=== PATIENT | female | born 1990 | race Caucasian/White ===

== ENCOUNTER 2017-02-11 17:53 | Emergency (ER) | payer BC, OTHER ==
[2017-02-11 18:17] VITALS: BP 161/80
[2017-02-11] MEDS ORDERED: Ketorolac INJ* 30 MG/ML 1 ML VIAL IM ONE (18:45)
--- NOTE | 2017-02-11 19:13 | UC ---
Abdominal Pain Female HPI - HPI Summary HPI Summary: 26 yo female presents with right pelvic/groin pain x 2 days states this is her typical pain from ovarian cysts followed by physicians at [facility] [place] [facility] in [place] no n/v no f/c no UTI symptoms had vag d/c yesterday - History of Current Complaint Chief Complaint: UCAbdominalPain Stated Complaint: SOFT TISSUE COMPLAINT Time Seen by Provider: 02/11/17 18:36 Hx Obtained From: Patient Hx Last Menstrual Period: 6 weeks ago Onset/Duration: Gradual Onset, Lasting Days Timing: Constant Severity Initially: Moderate Severity Currently: Moderate Pain Intensity: 7 Pain Scale Used: 0-10 Numeric Location: Discrete At: RLQ Radiates: No Character: Aching, Sharp Aggravating Factor(s): Nothing Alleviating Factor(s): Nothing Associated Signs and Symptoms: Positive: Negative Allergies/Adverse Reactions: Allergies Allergy/AdvReac Type Severity Reaction Status Date / Time Codeine Allergy Mild Hives Verified 02/11/17 18:17 Fentanyl AdvReac Severe Difficulty Verified 02/11/17 18:17 Breathing Hydrocodone AdvReac See Comment Verified 02/11/17 18:17 Home Medications: Home Medications Norethindrone Acet & Eth Estra [Loestrin 1.5-21 1.5-30 mg-Mcg] 1 tab PO DAILY 02/11/17 [History Confirmed 02/11/17] PMH/Surg Hx/FS Hx/Imm Hx GI/ History: Other Other GI/ History: frequent ovarian cysts - Surgical History Surgical History: Yes Surgery Procedure, Year, and Place: Orthroscopic surgery LEFT knee - Family History Known Family History: Positive: None, Other - denies hx of range master Magdalena Negative: Cardiac Disease, Hypertension, Diabetes - Social History Alcohol Use: Rare Substance Use Type: None Smoking Status (MU): Former Smoker - Immunization History Most Recent Influenza Vaccination: none Review of Systems Constitutional: Negative Skin: Negative Eyes: Negative ENT: Negative Respiratory: Negative Cardiovascular: Negative Gastrointestinal: Abdominal Pain Genitourinary: Negative Motor: Negative Neurovascular: Negative Musculoskeletal: Negative Neurological: Negative Psychological: Negative Is Patient Immunocompromised?: No All Other Systems Reviewed And Are Negative: Yes Physical Exam Triage Information Reviewed: Yes Appearance: Well-Appearing, No Pain Distress, Well-Nourished Vital Signs: Initial Vital Signs Temp 98.4 F 02/11/17 18:10 Pulse 113 02/11/17 18:10 Resp 16 02/11/17 18:10 BP 161/80 02/11/17 18:10 Pulse Ox 100 02/11/17 18:10 Vital Signs Reviewed: Yes Eyes: Positive: Conjunctiva Clear ENT: Positive: Hearing grossly normal. Negative: Nasal congestion, Nasal drainage, Trismus, Muffled voice, Hoarse voice, Dental tenderness, Sinus tenderness Neck: Positive: Supple, Nontender, No Lymphadenopathy Respiratory: Positive: Lungs clear, Normal breath sounds, No respiratory distress, No accessory muscle use Cardiovascular: Positive: RRR, No Murmur Abdomen Description: Positive: Nontender, No Organomegaly, Soft, Other: - ext genitalia- no lesions, vagina-moderate d/c (whitish), cervix (ectropion), no CMT ,slight right adenexal tenderness, uterus normal sized. Negative: CVA Tenderness (R), CVA Tenderness (L), Distended, Guarding, Hernia @ Musculoskeletal: Positive: ROM Intact, No Edema Neurological: Positive: Alert Psychological Exam: Normal Skin Exam: Normal Abd Pain Female Course/Dx - Course Course Of Treatment: patient states she is somewhat improved with the toradol. states she was up all last PM from the pain and she would like further evaluation. I suggested she go to the ER for a higher level of care - Differential Dx/Diagnosis Provider Diagnoses: Right sided pelvic pain of uncertain cause Discharge - Discharge Plan Condition: Stable Disposition: TRANS HIGHER LVL OF CARE FAC Patient Education Materials: Pelvic Pain in Women (ED) Referrals: Jf Wade MD [Primary Care Provider] - Additional Instructions: I am unsure of the cause of your severe right sided pelvic pain We are unable to adequately evaluate here and I suggest you go to the ER for further evaluation
[2017-02-12 11:35] LABS: Trichomonas Source Endocervical (Negative)
== END 2017-02-11 19:47 | disposition short-term general hospital (02) ==
LOC: UCEAST 17:53
DX: R10.2 Pelvic and perineal pain (principal); Z87.891 Personal history of nicotine dependence
CPT/HCPCS: 81003; 81025; 84702; 87491; 87591; 87661; 99212; G0463; J1885

== ENCOUNTER 2017-05-12 20:45 | Emergency (ER) | payer BC, OTHER ==
[2017-05-12] MEDS ORDERED: NS 0.9% 1000 ML* 1,000 ML IV ONE (21:46)
[2017-05-12] MEDS ORDERED: Morphine INJ* 4 MG/ML 1 ML SYRINGE (NEW SYRINGE VERSION) IV ONE (21:46)
[2017-05-12] MEDS ORDERED: Metoclopramide IV* 5 MG/ML 2 ML VIAL IV SLOW PU ONE (21:46)
[2017-05-12 22:23] LABS: ABS Basophils 0.1 10^3/ul (0-0.2); ABS Eosinophils 0.1 10^3/ul (0-0.6); ABS Lymphocytes 3.2 10^3/ul (1.0-4.8); ABS Monocytes 0.9 10^3/ul (0-0.8); ABS Neutrophils 5.3 10^3/ul (1.5-7.7); ABS Nucleated RBC 0 10^3/ul; Eosinophil % 0.7 % (0-6); Hematocrit 37 % (35-47); Hemoglobin 12.2 g/dl (12.0-16.0); Lymphocyte % 33.4 % (25-47); Mean Corpuscular HGB Conc 33 g/dl (31-36); Mean Corpuscular Hemoglobin 26 pg (27-31); Mean Corpuscular Volume 79 fL (80-97); Mean Platelet Volume 8 um3 (7.4-10.4); Nucleated Red Blood Cells % 0.1; Platelet Count 254 10^3/ul (150-450); Red Blood Count 4.69 10^6/ul (4.0-5.4); Red Cell Distribution Width 14 % (10.5-15); White Blood Count 9.5 10^3/ul (3.5-10.8)
[2017-05-12 22:37] LABS: EGFR Non-African American 104.5 (>60)
[2017-05-12 22:54] LABS: Urine Appearance Cloudy; Urine Blood 2+ (Negative); Urine Color Yellow; Urine Ketones 2+ (Negative); Urine Protein 1+(30 mg/dL) (Negative); Urine Specific Gravity 1.028 (1.010-1.030); Urine Urobilinogen Negative (Negative)
[2017-05-13] MEDS ORDERED: Potassium Chlor TAB* 20 MEQ TAB.ER PO ONE (00:27)
[2017-05-13 02:04] VITALS: BP 125/90
--- NOTE | 2017-05-13 07:49 | RAD ---
INDICATION: Abdominal pain COMPARISON: CT abdomen pelvis October 15, 2013 TECHNIQUE: Longitudinal and transverse scans of the abdomen were obtained. Doppler interrogation of the hepatic and portal venous system was performed. FINDINGS: Liver: There is hepatomegaly with hepatic steatosis. The liver measures. The liver measures 21.1 cm in cephalocaudal dimension. Vessels: There is normal hepatic and portal venous flow. Bile ducts: There is no evidence of intrahepatic or extrahepatic ductal dilatation. The common duct measures 0.4 cm. Gallbladder: The sonographic appearance of the gallbladder is normal. There is no evidence of cholelithiasis, thickening of the gallbladder wall, or pericholecystic fluid. Pancreas: The visualized portions of the pancreas are normal Spleen:The spleen is normal in size and echogenicity. The spleen measures 9.8 x 4.2 x 9.1 cm. Kidneys: The kidneys are normal in size and echogenicity. There are no masses or calculi. There is no evidence of hydronephrosis. The right kidney measures 11.4 x 4.3 x 4.5 cm and the left kidney measures 11.4 x 5.3 x 6.0 cm. IVC and aorta: The aorta and superior vena cava appear normal. Fluid: There is no ascites. Other: None. IMPRESSION: HEPATOMEGALY WITH HEPATIC STEATOSIS.
--- NOTE | 2017-05-16 19:58 | ED ---
Juanpablo Puente Gabriel, scribed for Gal Kyle MD on 05/12/17 at 2120 . Abdominal Pain/Female - HPI Summary HPI Summary: This patient is a 26 year old F presenting to [facility] accompanied by her mother with a chief complaint of RLQ pain that began 3 days ago. The patient rates the pain 5/10 in severity. Symptoms aggravated by PO intake. Patient reports nausea and diarrhea. Patient denies vomiting and fever. LNMP was in February, she gets them one time every three months. - History of Current Complaint Chief Complaint: EDAbdPain Stated Complaint: ABD AND BACK PAIN/NAUSEA Time Seen by Provider: 05/12/17 21:14 Hx Obtained From: Patient Hx Last Menstrual Period: 6 weeks ago Onset/Duration: Lasting Days - 3, Still Present Timing: Constant Severity Initially: Moderate Severity Currently: Moderate Pain Intensity: 5 Pain Scale Used: 0-10 Numeric Location: Discrete At: RUQ, Discrete At: RLQ Radiates: No Associated Signs and Symptoms: Positive: Nausea, Diarrhea. Negative: Fever, Vomiting Allergies/Adverse Reactions: Allergies Allergy/AdvReac Type Severity Reaction Status Date / Time codeine Allergy Hives Verified 05/12/17 20:56 fentanyl Allergy Difficulty Verified 05/12/17 20:56 Breathing hydrocodone Allergy Nausea Verified 05/12/17 20:56 PMH/Surg Hx/FS Hx/Imm Hx Endocrine/Hematology History: Denies: Hx Diabetes, Hx Thyroid Disease Cardiovascular History: Denies: Hx Hypertension Respiratory History: Denies: Hx Asthma, Hx Chronic Obstructive Pulmonary Disease (COPD) GI History: Denies: Hx Ulcer - Surgical History Surgery Procedure, Year, and Place: Orthroscopic surgery LEFT knee - Immunization History Date of Tetanus Vaccine: utd Date of Influenza Vaccine: utd Infectious Disease History: No Infectious Disease History: Denies: Hx Clostridium Difficile, Hx Hepatitis, Hx Human Immunodeficiency Virus (HIV), Hx of Known/Suspected MRSA, Hx Shingles, Hx Tuberculosis, Hx Known/ Suspected VRE, Hx Known/Suspected VRSA, History Other Infectious Disease, Traveled Outside the [place] in Last 30 Days - Family History Known Family History: Positive: Other - denies hx of forensic manager Magdalena Negative: Cardiac Disease, Hypertension, Diabetes - Social History Alcohol Use: Rare Substance Use Type: Reports: None Smoking Status (MU): Former Smoker Review of Systems Negative: Fever Positive: Abdominal Pain, Diarrhea, Nausea. Negative: Vomiting All Other Systems Reviewed And Are Negative: Yes Physical Exam - Summary Physical Exam Summary: VITAL SIGNS: Reviewed. GENERAL: Patient is a well-developed and nourished female who is lying comfortable in the stretcher. Patient is not in any acute respiratory distress. HEAD AND FACE: No signs of trauma. No ecchymosis, hematomas or skull depressions. No sinus tenderness. EYES: PERRLA, EOMI x 2, No injected conjunctiva, no nystagmus. EARS: Hearing grossly intact. Ear canals and tympanic membranes are within normal limits. MOUTH: Oropharynx within normal limits. NECK: Supple, trachea is midline, no adenopathy, no JVD, no carotid bruit, no c- spine tenderness, neck with full ROM. CHEST: Symmetric, no tenderness at palpation LUNGS: Clear to auscultation bilaterally. No wheezing or crackles. CVS: Regular rate and rhythm, S1 and S2 present, no murmurs or gallops appreciated. ABDOMEN: Soft, RUQ it TTP No signs of distention. No rebound no guarding, and no masses palpated. Bowel sounds are normal. EXTREMITIES: FROM in all major joints, no edema, no cyanosis or clubbing. NEURO: Alert and oriented x 3. No acute neurological deficits. Speech is normal and follows commands. SKIN: Dry and warm Triage Information Reviewed: Yes Vital Signs On Initial Exam: Initial Vitals Temp Pulse Resp BP Pulse Ox 98.4 F 95 18 150/88 100 05/12/17 20:53 05/12/17 20:53 05/12/17 20:53 05/12/17 20:53 05/12/17 20:53 Vital Signs Reviewed: Yes Diagnostics - Vital Signs Vital Signs Temp Pulse Resp BP Pulse Ox 05/12/17 20:53 98.4 F 95 18 150/88 100 - Laboratory Result Diagrams: 05/12/17 22:10 05/12/17 22:10 Lab Statement: Any lab studies that have been ordered have been reviewed, and results considered in the medical decision making process. - Additional Comments Diagnostic Additional Comments: US ABD reveals, per radiologist, Heptomegaly. Unremarkable kidneys, gallbladder , spleen, and visualized IVC, aorta and pancreas. Normal common duct diameter 4mm ED physician has reviewed this radiology report. Abdominal Pain Fem Course/Dx - Course Course Of Treatment: This patient is a 26 year old F presenting to [facility] accompanied by her mother with a chief complaint of RLQ pain that began 3 days ago. The patient rates the pain 5/10 in severity. Symptoms aggravated by PO intake. Patient reports nausea and diarrhea. Patient denies vomiting and fever. LNMP was in February, she gets them once every three months. US ABD reveals, per radiologist, Heptomegaly. Unremarkable kidneys, gallbladder, spleen, and visualized IVC, aorta and pancreas. Normal common duct diameter 4mm. Test results with no significant abnormalities. In the ED course the patient was given reglan, morphine, and Iv fluids. Patient will be discharged and follow up from PCP. The patient is agreeable with this plan. - Diagnoses Provider Diagnoses: Abdominal pain Discharge - Discharge Plan Condition: Stable Disposition: HOME Patient Education Materials: Abdominal Pain in Children (ED) Referrals: Jf Wade MD [Primary Care Provider] - 4 Days Additional Instructions: RETURN TO EMERGENCY DEPARTMENT FOR ANY NEW OR WORSENING SYMPTOMS The documentation as recorded by the Juanpablo rios Gabriel accurately reflects the service I personally performed and the decisions made by me, Gal Kyle MD.
== END 2017-05-13 02:03 | disposition home or self-care (01) ==
LOC: ED 20:45
DX: R10.9 Unspecified abdominal pain (principal); R11.0 Nausea; R19.7 Diarrhea, unspecified; Z87.891 Personal history of nicotine dependence
CPT/HCPCS: 36415; 76700; 80053; 81003; 81015; 82150; 83690; 83735; 84702; 85025; 86140; 87040; 87086; 96374; 96375; 99283; A9270-GY; J2270; J2765

== ENCOUNTER 2017-12-07 19:15 | Emergency (ER) | payer BC ==
[2017-12-07 21:01] VITALS: BP 145/83
--- NOTE | 2017-12-07 21:24 | UC ---
Respiratory Complaint HPI - HPI Summary HPI Summary: PT WENT TO [facility] AND RECEIVED AUGMENTIN FOR A SINUS INFECTION. HAS TAKEN FOR 5 DAYS AND STATES SX ARE NOT IMPROVING. TODAY HAD 2 EPISODES OF EMESIS AND BLOODY PHLEGM. C/O CHEST CONGESTION, COUGH, CHILLS, FATIGUE. - History of Current Complaint Chief Complaint: UCRespiratory Stated Complaint: COUGH,COLD Time Seen by Provider: 12/07/17 21:22 Hx Obtained From: Patient, Family/Director Of Automation - MOM Hx Last Menstrual Period: control Onset/Duration: Gradual Onset, Lasting Days, Still Present Timing: Constant Severity Initially: Moderate Severity Currently: Moderate Pain Intensity: 6 Pain Scale Used: 0-10 Numeric Character: Cough: Productive Aggravating Factors: Deep Breaths Alleviating Factors: Nothing Associated Signs And Symptoms: Positive: Chills, URI, Nasal Congestion, Sinus Discomfort. Negative: Dyspnea - Allergies/Home Medications Allergies/Adverse Reactions: Allergies Allergy/AdvReac Type Severity Reaction Status Date / Time codeine Allergy Hives Verified 12/07/17 21:01 fentanyl Allergy Difficulty Verified 12/07/17 21:01 Breathing hydrocodone Allergy Nausea Verified 12/07/17 21:01 Home Medications: Home Medications Acetaminophen TAB* [Tylenol TAB*] 650 mg PO Q6HR PRN 12/07/17 [History Confirmed 12/07/17] Amoxicillin/Clavulanate TAB* [Augmentin TAB 875*] 875 mg PO BID 12/07/17 [ History Confirmed 12/07/17] Pseudoephedrine TAB* [Sudafed TAB*] 60 mg PO Q6HR PRN 12/07/17 [History Confirmed 12/07/17] PMH/Surg Hx/FS Hx/Imm Hx Neurological History: Migraine - Surgical History Surgical History: Yes Surgery Procedure, Year, and Place: Orthroscopic surgery LEFT knee - Family History Known Family History: Positive: None, Other - denies hx of mainframe programmer Magdalena Negative: Cardiac Disease, Hypertension, Diabetes - Social History Alcohol Use: Rare Substance Use Type: None Smoking Status (MU): Light Every Day Tobacco Smoker - Immunization History Most Recent Influenza Vaccination: none Review of Systems Constitutional: Chills, Fatigue ENT: Sore Throat, Nasal Discharge, Sinus Congestion Respiratory: Cough Cardiovascular: Negative Gastrointestinal: Vomiting, Nausea All Other Systems Reviewed And Are Negative: Yes Physical Exam Triage Information Reviewed: Yes Appearance: Well-Appearing, No Pain Distress, Well-Nourished Vital Signs: Initial Vital Signs Temp 98.2 F 12/07/17 20:52 Pulse 66 12/07/17 20:52 Resp 16 12/07/17 20:52 BP 145/83 12/07/17 20:52 Pulse Ox 100 12/07/17 20:52 Vital Signs Reviewed: Yes Eyes: Positive: Conjunctiva Clear ENT: Positive: Hearing grossly normal, Pharynx normal, TMs normal Neck: Positive: Supple, Nontender, No Lymphadenopathy Respiratory Exam: Normal Cardiovascular Exam: Normal Abdomen Description: Positive: Soft Musculoskeletal: Positive: No Edema Neurological: Positive: Alert Psychological: Positive: Normal Response To Family, Age Appropriate Behavior Skin: Negative: rashes UC Diagnostic Evaluation - Laboratory O2 Sat by Pulse Oximetry: 100 - Radiology Xray Interpretation: No Acute Changes - CXR Radiology Interpretation Completed By: ED Physician Respiratory Course/Dx - Differential Dx/Diagnosis Provider Diagnoses: ACUTE BRONCHITIS Discharge - Sign-Out/Discharge Documenting (check all that apply): Patient Departure All imaging exams completed and their final reports reviewed: No - Discharge Plan Condition: Stable Disposition: HOME Prescriptions: predniSONE TAB* [Deltasone 20 MG TAB*] 40 mg PO DAILY #10 tab Patient Education Materials: Acute Bronchitis (ED) Forms: *Work Release Referrals: Jf Wade MD [Primary Care Provider] - Additional Instructions: CHEST XRAY TODAY UNREMARKABLE ON MY INITIAL INTERPRETATION. WE WILL CALL YOU TOMORROW IF THE RADIOLOGY READ DIFFERS. YOUR SYMPTOMS ARE LIKELY VIRALLY MEDIATED AND SHOULD RESOLVE ON THEIR OWN WITH TIME BUT GIVEN YOU ARE ALREADY TAKING AUGMENTIN RECOMMEND YOU CONTINUE TO COMPLETE COURSE. REST, HYDRATE, OTC MEDS NEEDED. WILL TREAT WITH PREDNISONE TO HELP WITH AIRWAY INFLAMMATION. SEEK FOLLOW-UP IF YOU ARE NOT IMPROVING OVER THE NEXT 1-2 WEEKS. GO TO THE ED WITHOUT FAIL IF YOU HAVE CONTINUED BLOODY SPUTUM. - Billing Disposition and Condition Condition: STABLE Disposition: Home
--- NOTE | 2017-12-08 07:22 | RAD ---
INDICATION: Cough. COMPARISON: There are no relevant prior studies available for comparison. TECHNIQUE: Dual-energy PA and lateral views of the chest were obtained. FINDINGS: The heart is within normal limits in size. Mediastinal and hilar contours appear within normal limits. The lungs are clear. No pleural effusion is present. IMPRESSION: NO EVIDENCE FOR ACTIVE CARDIOPULMONARY DISEASE. R0
--- NOTE | 2017-12-08 09:56 | UC ---
- Progress Note Progress Note: XR: IMPRESSION: NO EVIDENCE FOR ACTIVE CARDIOPULMONARY DISEASE. No change in plan of care Discharge - Sign-Out/Discharge Documenting (check all that apply): Post-Discharge Follow Up All imaging exams completed and their final reports reviewed: Yes - Discharge Plan Condition: Stable Disposition: HOME Prescriptions: predniSONE TAB* [Deltasone 20 MG TAB*] 40 mg PO DAILY #10 tab Patient Education Materials: Acute Bronchitis (ED) Forms: *Work Release Referrals: Jf Wade MD [Primary Care Provider] - Additional Instructions: CHEST XRAY TODAY UNREMARKABLE ON MY INITIAL INTERPRETATION. WE WILL CALL YOU TOMORROW IF THE RADIOLOGY READ DIFFERS. YOUR SYMPTOMS ARE LIKELY VIRALLY MEDIATED AND SHOULD RESOLVE ON THEIR OWN WITH TIME BUT GIVEN YOU ARE ALREADY TAKING AUGMENTIN RECOMMEND YOU CONTINUE TO COMPLETE COURSE. REST, HYDRATE, OTC MEDS NEEDED. WILL TREAT WITH PREDNISONE TO HELP WITH AIRWAY INFLAMMATION. SEEK FOLLOW-UP IF YOU ARE NOT IMPROVING OVER THE NEXT 1-2 WEEKS. GO TO THE ED WITHOUT FAIL IF YOU HAVE CONTINUED BLOODY SPUTUM. - Billing Disposition and Condition Condition: STABLE Disposition: Home
== END 2017-12-07 22:05 | disposition home or self-care (01) ==
LOC: UCEAST 19:15
DX: J20.9 Acute bronchitis, unspecified (principal); Z88.5 Allergy status to narcotic agent; F17.200 Nicotine dependence, unspecified, uncomplicated
CPT/HCPCS: 71046; 99212; G0463